=== PATIENT | male | born 1985 | race Caucasian/White ===

== ENCOUNTER 2017-09-27 21:58 | Emergency (ER) | payer SELFPAY ==
[~2017-09-27] VITALS: Ht 185.4 cm; Wt 99.0 kg
[2017-09-27 22:00] VITALS: BP 129/78
== END 2017-09-27 23:47 ==
LOC: EME 21:58
DX: F10.129 Alcohol abuse with intoxication, unspecified (principal); Z02.89 Encounter for other administrative examinations; Y90.9 Presence of alcohol in blood, level not specified; F17.200 Nicotine dependence, unspecified, uncomplicated
CPT/HCPCS: 99281; 99284